=== PATIENT | female | born 1990 | race Caucasian/White ===

== ENCOUNTER 2024-08-20 11:12 | Emergency (ER) | payer OTHER, MEDICARE, MEDICAID, SELFPAY ==
[2024-08-20 11:22] VITALS: BP 104/56; BP 119/81; PULSE 69; PULSE 72; RESP 16; TEMP 37; O2SAT 98; O2SAT 99; BMI 22.2
--- NOTE | 2024-08-20 11:40 | ED.RECABL ---
HPI - Recheck/Abnormal Lab/Rx General Chief Complaint: Recheck/Abnormal Lab/Rx Stated Complaint: ABN LABS,FROM [facility] PER EMS Time Seen by Provider: 08/20/24 11:39 Source: patient and RN notes reviewed Mode of arrival: ambulatory Limitations: no limitations History of Present Illness ED Provider: Yuliya Vickers PA-C HPI narrative: This is a 34-year-old female, with a [facility] 8 months [facility], cirrhosis, alcohol use disorder, who presents emergency department on section 21 from [facility] due to abnormal labs. Patient had her blood work performed and her white blood cell count was 1.5. She states that she has a history of similar appearing labs in the past however states that [facility] could not confirm this. Patient reports that she feels well, she has no current complaints. She would like to return back to the facility as soon as possible as she is worried she will lose her bed. No SI or HI. No bloody or black stool. No other complaints or concerns at this time. Context: called for abnormal lab result (Routine blood work, advised to come in for recommendations) Associated symptoms: none Related Data Allergies Allergy/AdvReac Type Severity Reaction Status Date / Time amitriptyline [AMITRIPTYLINE] Allergy Severe SI Unverified 08/12/20 18:46 codeine Allergy Unknown Verified 08/20/24 11:31 oxycodone Allergy Unknown Verified 08/20/24 11:31 Review of Systems Review of Systems: Yes all other systems are reviewed and are negative Constitutional: Constitutional: Reports as per [facility] Past Medical History Attestation statement: The following information was validated with the patient. Social History Social History Alcohol intake: former Use of substances other than those prescribed or required for medical reasons: No Advance Directives: No Advance Directives Information Provided: No Patient : No Physical Exam Vital Signs: Vital Signs: Last Vital Signs Temp 98.6 F 08/20/24 11:22 Pulse 69 08/20/24 11:22 Resp 16 08/20/24 11:22 BP 119/81 08/20/24 11:22 Pulse Ox 98 08/20/24 11:22 O2 Del Method Room Air 08/20/24 11:22 BMI result Body Mass Index 22.2 Const: General: cooperative, comfortable and no acute distress Orientation/consciousness: patient oriented x3 Limitations: no limitations HEENT: Head: Yes normal to inspection, Yes normocephalic and Yes atraumatic Ears: hearing grossly normal bilaterally General nose exam: Normal external nose present Face and sinus: Yes normal facial exam Mouth: Normal oral and palatal mucosa present, oropharynx normal and moist mucous membranes Throat: Yes posterior oropharynx normal Eyes: General: appearance normal, both eyes and all related structures Eyelids: Yes eyelids normal Conjunctivae: conjunctivae normal Sclerae: sclerae normal Pupils: Equal, round and reactive pupils present EOM: EOMs intact bilaterally Neck: Neck: Yes normal visual inspection, Yes full ROM and Yes no lymphadenopathy Lymphatic: no lymphadenopathy noted Chest: Chest palpation & inspection: normal inspection of the chest Resp: Effort & Inspection: normal respiratory effort and able to speak in complete sentences Auscultation: clear to auscultation bilaterally, no crackles, no rales, no rhonchi and no wheezes Cardio: Rate: regular rate Rhythm: regular rhythm Heart sounds: S1 normal heart sound present and S2 normal heart sound present GI: Other: Abdomen is soft, nontender, nondistended Inspection: Yes normal to inspection Skin: General skin exam: no rashes or lesions noted Trauma: no lacerations or abrasions Wounds: no wounds Neuro: General: patient oriented x3 and moves all extremities Cranial nerves: Yes Equal, round and reactive pupils present Extrem: General: Yes normal to inspection Right upper extremity: normal to inspection Left upper extremity: normal to inspection Right lower extremity: normal to inspection Left lower extremity: normal to inspection Course Reevaluation(s) Reevaluation #1: Spoke to Dr. Asher, who reports no interventions needed to be performed today as she is asymptomatic with normal vital signs and she has a known history of this. I discussed this with patient, she will follow-up with her Heme-Onc specialist. Advised to call today to make an appointment. Time: 12:43 Medical Decision Making Medical Decision Making MDM Narrative: This is a 34-year-old female who presents emergency department who was advised to come to the emergency room due to abnormal labs. On arrival, vital signs within normal limits, she is speaking full sentences under no acute distress. She is afebrile. She was told by me [place], that her routine blood work revealed a white blood cell count of 1.5. Patient states that she has a history of abnormal white blood cell count. I reviewed her labs over from [facility], she has a varying level wbc's, July 15, 2024 she had a white blood cell count of 1.3, this improved to 8.2 on July 23. Her Heme-Onc specialist is from [facility]. She has not been seen by them in 8 months. Plan: Repeat labs Differential Diagnosis Differential Diagnoses: The differential diagnosis associated with the presentation includes Leukopenia, neutropenic fever, normal labs, wellness check Lab Data MDM Lab Attestation statement: I reviewed the patient's lab results. 08/20/24 11:42 08/20/24 11:42 Labs: Lab Results 08/20/24 Range/Units 11:42 WBC 1.9 L (4.8-10.8) X10*3/uL RBC 4.04 L (4.20-5.50) X10*6/uL Hgb 10.0 L (12.0-16.0) g/dl Hct 31.5 L (37.0-47.0) % MCV 78.0 L (80.0-98.0) fL MCH 24.8 L (27.0-33.0) pg MCHC 31.7 (31.0-35.0) g/dl RDW 19.5 H (11.0-16.0) % Plt Count 33 L (160-400) X10*3/uL MPV Not Reportable Immature Gran % (Auto) 0.5 H (0.0-0.4) % Neut % (Auto) 75.0 H (45-73) % Lymph % (Auto) 11.2 L (20-40) % Stephens % (Auto) 9.6 (2-11) % Eos % (Auto) 3.2 (0-4) % Baso % (Auto) 0.5 (0-2) % Lymph # (Auto) 0.2 L (1.2-4.9) X10*3/uL Stephens # (Auto) 0.2 (0.1-1.2) X10*3/uL Eos # (Auto) 0.1 (0.0-0.4) X10*3/uL Baso # (Auto) 0.0 (0.0-0.2) X10*3/uL Abs Immat Gran (auto) 0.01 (0.00-0.03) X10*3/uL Absolute Neuts (auto) 1.4 L (2.0-8.3) x10*3/uL Absolute Nucleated RBC 0.000 (0.0-0.012) X10*3/uL Nucleated RBC % (auto) 0.0 (0.0-0.2) /100WBC Smear Tech's Comments VERIFIED Sodium 141 (135-145) mmol/L Potassium 4.0 (3.3-5.1) mmol/L Chloride 109 H (96-108) mmol/L Carbon Dioxide 26 (22-29) mmol/L Anion Gap 10 L (12-20) BUN 8 L (9-16) mg/dL Creatinine 0.62 (0.5-1.4) mg/dL Estim Creat Clear Calc 87.1 Estimated GFR > 60 Random Glucose 93 (60-115) mg/dL Calcium 8.9 (8.4-10.2) mg/dL Total Bilirubin 1.4 H (0.0-1.0) mg/dL AST 62 H (5-31) U/L ALT 73 H (0-31) U/L Alkaline Phosphatase 206 H (39-117) U/L Total Protein 7.2 (6.5-8.0) g/dL Albumin 3.4 L (3.5-5.0) g/dL Radiology Impression Discussion of test interpretation with radiology: I have reviewed the radiologist's reading. External Record Review External record reviewed: Inpatient record, Office record, Outpatient record, Prior outpatient labs, Prior outpatient radiology, Primary care record and Outside ED record Discharge Plan Discharge Clinical Impression: Abnormal white blood cell (WBC) count Patient Disposition: [facility]fer [facility] Transfer Details: Laure Can Additional Instructions: You were seen in the emergency department due to abnormal labs. Your white blood cell count is 1.9 today. Given that you are asymptomatic, there is no interventions that need to be performed today. However you need to follow-up with your medical delivery driver, call today to make an appointment. If any new or worsening symptoms occur including but not limited to fevers, chills, chest pain, shortness of breath, dizziness, please return for re-evaluation. Print Language: Bengali
[2024-08-20 11:52] LABS: Basophils Percent Auto 0.5 % (0-2); Eosinophils Absolute Auto 0.1 X10*3/uL (0.0-0.4); Eosinophils Percent Auto 3.2 % (0-4); Hematocrit 31.5 % (37.0-47.0); Imm Gran Abs Auto 0.01 X10*3/uL (0.00-0.03); Imm Gran Pct Auto 0.5 % (0.0-0.4); Lymphocytes Absolute Auto 0.2 X10*3/uL (1.2-4.9); Lymphocytes Percent Auto 11.2 % (20-40); MANUAL DIFF FLAG SCAN; Mean Corpuscular HGB Conc 31.7 g/dl (31.0-35.0); Mean Corpuscular Hemoglobin 24.8 pg (27.0-33.0); Monocytes Absolute Auto 0.2 X10*3/uL (0.1-1.2); Monocytes Percent Auto 9.6 % (2-11); Neutrophils Absolute Auto 1.4 x10*3/uL (2.0-8.3); Red Blood Count 4.04 X10*6/uL (4.20-5.50); Red Cell Distribution Width 19.5 % (11.0-16.0); SCAN SMEAR FLAG 1
[2024-08-20 12:02] LABS: Alanine Aminotransferase 73 U/L (0-31); Albumin Level 3.4 g/dL (3.5-5.0); Alkaline Phosphatase 206 U/L (39-117); Anion Gap 10 (12-20); Aspartate Amino Transferase 62 U/L (5-31); Bilirubin Total 1.4 mg/dL (0.0-1.0); Blood Urea Nitrogen 8 mg/dL (9-16); Calcium 8.9 mg/dL (8.4-10.2); Carbon Dioxide 26 mmol/L (22-29); Chloride 109 mmol/L (96-108); Creatinine Clr Calc Pharmacy 87.1; Estimated Glomerular Filt Rate > 60; Glucose Random 93 mg/dL (60-115); Sodium 141 mmol/L (135-145); Total Protein 7.2 g/dL (6.5-8.0)
[2024-08-20 12:09] LABS: White Blood Count 1.9 X10*3/uL (4.8-10.8)
[2024-08-20 12:10] LABS: Platelet Count 33 X10*3/uL (160-400)
[2024-08-20 12:11] LABS: SLIDE REVIEW VERIFIED
--- NOTE | 2024-08-20 13:01 | PC.NURSE ---
RN-RN report called into [facility] nursing supervisor detasseling crew d/t no answer on the pt unit. , plan to follow up w outpt hematology.
[2024-08-20 13:21] VITALS: BP 115/80; PULSE 64; RESP 15; TEMP 36.6; O2SAT 98
== END 2024-08-20 14:51 ==
PROVIDERS: Emergency Provider Student in an Organized Health Care Education/Training Program; PCP Internal Medicine
DX: D72.9 Disorder of white blood cells, unspecified (principal)
CPT/HCPCS: 36415; 80053; 85025; 99283; 99284